=== PATIENT | female | born 1955 | race Caucasian/White ===

== ENCOUNTER 2021-09-30 22:34 | Emergency (ER) | payer MEDICARE, BC ==
[~2021-09-30] VITALS: Ht 162.6 cm; Wt 92.3 kg
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
[2021-09-30 23:21] VITALS: BP 161/78
[2021-09-30] MEDS ORDERED: cefTRIAXone SODIUM 1 GM VIAL ONE (23:26)
[2021-09-30] MEDS ORDERED: IV NORMAL SALINE 50ML 50 ML ONE (23:26)
[2021-09-30] MEDS ORDERED: ACETAMINOPHEN 500 MG TABLET PO ONE (23:30)
[2021-09-30] MEDS ORDERED: ONDANSETRON ODT 4 MG TAB.RAPDIS PO ONE (23:30)
[2021-09-30] MEDS ORDERED: IV RINGERS SOLUTION,LACTATED 1,000 ML IV SCH (23:30)
[2021-09-30] MEDS ORDERED: metroNIDAZOLE 500 MG TABLET PO ONE (23:30)
[2021-09-30 23:41] LABS: BASO % 1 % (0-3); EOS # 0.1 x10^3/uL (0.0-0.7); EOS % 3 % (0-3); HEMATOCRIT 33.8 % (36.0-47.0); HEMOGLOBIN 10.9 g/dL (12.0-15.5); LYMPH # 0.6 x10^3/uL (1.0-4.8); LYMPH % 27 % (24-48); MEAN CORPUSCULAR HEMOGLOBIN 27 pg (25-35); MEAN CORPUSCULAR HGB CONC 32 g/dL (31-37); MEAN CORPUSCULAR VOLUME 83 fL (79-100); MONO # 0.3 x10^3/uL (0.0-1.1); MONO % 11 % (0-9); NEUT # 1.4 x10^3uL (1.8-7.7); NEUT % 59 % (31-73); PLATELET COUNT 61 x10^3/uL (140-400); RED BLOOD COUNT 4.08 x10^6/uL (3.50-5.40); RED CELL DISTRIBUTION WIDTH 15.8 % (11.5-14.5); WHITE BLOOD COUNT 2.4 x10^3/uL (4.0-11.0)
[2021-09-30] MEDS ORDERED: IBUPROFEN 600 MG TABLET. PO ONE (23:45)
[2021-09-30 23:52] LABS: CALCIUM 8.1 mg/dL (8.5-10.1); CREATININE 0.7 mg/dL (0.6-1.0); GFR 83.7; POTASSIUM 3.3 mmol/L (3.5-5.1)
[2021-09-30 23:53] LABS: INFLUENZA A PATIENT NEGATIVE (NEGATIVE); INFLUENZA B PATIENT NEGATIVE (NEGATIVE)
[2021-09-30 23:56] LABS: C REACTIVE PROTEIN 2.4 mg/L (0-3.3)
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
[2021-10-01 00:03] LABS: % BANDS 3 % (0-9); % LYMPHS 33 % (24-48); % MONOS 5 % (0-10); % SEGS 59 % (35-66)
[2021-10-01 00:04] LABS: PLT ESTIMATE DECREASED (ADEQUATE)
[2021-10-01] MEDS ORDERED: METR375C PO (00:35)
[2021-10-01] MEDS ORDERED: CEPH500C PO ×2 (00:35→00:41)
[2021-10-01] MEDS ORDERED: FLUC100T7 PO (00:35)
[2021-10-02] MEDS ORDERED: SULF1TAB24 PO (08:27)
== END 2021-10-01 00:47 | disposition home or self-care (01) ==
LOC: ER 22:34
DX: S91.311A Laceration without foreign body, right foot, initial encounter (principal); L03.115 Cellulitis of right lower limb; E11.9 Type 2 diabetes mellitus without complications; I10 Essential (primary) hypertension; E78.00 Pure hypercholesterolemia, unspecified; Z20.822 Contact with and (suspected) exposure to COVID-19; Z88.8 Allergy status to other drugs, medicaments and biological substances; W26.0XXA Contact with knife, initial encounter; Y93.89 Activity, other specified; Y92.89 Other specified places as the place of occurrence of the external cause; Y99.8 Other external cause status
CPT/HCPCS: 36415; 73630; 80048; 82947; 83605; 85007; 85025; 86140; 87428; 96365; 99284; J0696; J7120

== ENCOUNTER 2021-10-02 07:52 | Emergency (ER) | payer MEDICARE, BC ==
[~2021-10-02] VITALS: Ht 162.6 cm; Wt 92.3 kg
[~2021-10-02 07:52] MED LIST: CEPH500C PO; FLUC100T7 PO; METR375C PO
[2021-10-02 08:00] VITALS: BP 155/81
[2021-10-02] MEDS ORDERED: SULF1TAB24 PO (08:27)
--- NOTE | 2021-10-02 08:27 | PHYS DOC ---
Past History Past Medical History: Diabetes, High Cholesterol, Hypertension Past Surgical History: , Other Additional Past Surgical Histo: cataracts,rectocele,urethracele Alcohol Use: None General Adult EDM: Chief Complaint: ABSCESS HPI: HPI: 66-year-old female returns the emergency room with cellulitis and abscess of the right foot. The patient states that she had her abscess come to ahead and spontaneously drain yesterday. She presents this morning because when she woke up it was more red around the wound and her surrounding skin is more red up to her ankle. This is expanded since she was in the emergency room 2 days ago. She does not believe she has had a fever at home but she did have some chills last night. No fever on arrival. She has been taking Keflex and Flagyl. Review of Systems: Review of Systems: Constitutional: Denies fever or chills Eyes: Denies change in visual acuity HENT: Denies nasal congestion or sore throat Respiratory: Denies cough or shortness of breath Cardiovascular: Denies chest pain or edema GI: Denies abdominal pain, nausea, vomiting, bloody stools or diarrhea : Denies dysuria Musculoskeletal: Denies back pain or joint pain Integument: Cellulitis right foot Neurologic: Denies headache, focal weakness or sensory changes Endocrine: Denies polyuria or polydipsia Lymphatic: Denies swollen glands Psychiatric: Denies depression or anxiety Allergies: Allergies: Allergies Coded Allergies Type Severity Reaction Last Updated Verified lisinopril Allergy Unknown 10/02/21 Yes naproxen Allergy Unknown 10/02/21 Yes Physical Exam: PE: Constitutional: Well developed, well nourished, no acute distress, non-toxic appearance. [] HENT: Normocephalic, atraumatic, bilateral external ears normal, oropharynx moist, no oral exudates, nose normal. [] Eyes: PERRLA, EOMI, conjunctiva normal, no discharge. [] Neck: Normal range of motion, no tenderness, supple, no stridor. [] Cardiovascular:Heart rate regular rhythm, no murmur [] Lungs & Thorax: Bilateral breath sounds clear to auscultation [] Abdomen: Bowel sounds normal, soft, no tenderness, no masses, no pulsatile masses. [] Skin: Erythematous, hot skin of the right foot to the ankle. Evidence of recent draining lesion the base of the fourth digit. [] Back: No tenderness, no CVA tenderness. [] Extremities: No tenderness, no cyanosis, no clubbing, ROM intact, no edema. [] Neurologic: Alert and oriented X 3, normal motor function, normal sensory function, no focal deficits noted. [] Psychologic: Affect normal, judgement normal, mood normal. [] Current Patient Data: Vital Signs: Vital Signs Date Time Temp Pulse Resp B/P (MAP) Pulse Ox O2 Delivery O2 Flow Rate FiO2 10/02/21 08:00 97.5 84 17 155/81 (105) 98 Room Air EKG: EKG: [] Radiology/Procedures: Radiology/Procedures: [] Heart Score: C/O Chest Pain: N/A Risk Factors: Risk Factors: DM, Current or recent (<one month) smoker, HTN, HLP, family history of CAD, obesity. Risk Scores: Score 0 - 3: 2.5% MACE over next 6 weeks - Discharge Home Score 4 - 6: 20.3% MACE over next 6 weeks - Admit for Clinical Observation Score 7 - 10: 72.7% MACE over next 6 weeks - Early Invasive Strategies Course & Med Decision Making: Course & Med Decision Making Pertinent Labs and Imaging studies reviewed. (See chart for details) It appears as though the patient's abscess has spontaneously drained. Her surrounding cellulitis has worsened however. I will add Bactrim to her antibiotics. We will give her a dose in the emergency room. I have explained to the patient that if redness continues to spread more than the next 24 hours, she may need to be admitted to the hospital for IV antibiotics. [] Nina Disclaimer: Nina Disclaimer: This electronic medical record was generated, in whole or in part, using a voice recognition dictation system. Departure Departure: Impression: Primary Impression: Cellulitis of right foot Disposition: HOME / SELF CARE / HOMELESS Condition: STABLE Referrals: ANN BARRIGA MD (PCP) Patient Instructions: Cellulitis, [id number] Scripts Sulfamethoxazole/Trimethoprim (BACTRIM DS TABLET) 1 Each Tablet 2 TAB PO BID for cellulitis for 7 Days, #28 TAB 0 Refills Prov: SAMMY RICK DO 10/02/21 SAMMY RICK DO Oct 02, 2021 08:27
[2021-10-02] MEDS ORDERED: SMZ/TMP 800/160MG TABLET. PO ONE (08:30)
[2021-10-02] MEDS ORDERED: SMX/TMP 800/160MG 2TABLET STARTPACK. PO ONE (08:35)
== END 2021-10-02 08:42 | disposition home or self-care (01) ==
LOC: ER 07:52
DX: L03.115 Cellulitis of right lower limb (principal); E11.9 Type 2 diabetes mellitus without complications; E78.00 Pure hypercholesterolemia, unspecified; I10 Essential (primary) hypertension; Z88.8 Allergy status to other drugs, medicaments and biological substances
CPT/HCPCS: 99283